=== PATIENT | female | born 1990 | race Caucasian/White ===

== ENCOUNTER 2020-10-22 18:37 | Emergency (ER) | payer OTHER ==
[2020-06-28 10:31] VITALS: BMI 25.7
[~2020-10-22 18:37] MED LIST: HYDROCODON-ACE1 EAC7 PO; ULTRAM50 MG PO
== END 2020-10-22 19:27 | disposition left against medical advice (07) ==
LOC: D.ER 18:37
DX: R05 Cough (principal); R50.9 Fever, unspecified